=== PATIENT | male | born 1955 | race Caucasian/White ===

== ENCOUNTER 2018-06-04 13:45 | Observation (INO) | payer OTHER ==
[2018-06-04] MEDS ORDERED: MECLIZINE HCL 25 MG TAB PO ONE (14:09)
[2018-06-04 14:13] LABS: PLATELET COUNT 224 10^3/uL (150-400)
--- NOTE | 2018-06-04 14:13 | EDPHY ---
H & P Stated Complaint: double vision,nystagmus Time Seen by Provider: 06/04/18 13:50 HPI/ROS: CHIEF COMPLAINT: Double vision HISTORY OF PRESENT ILLNESS: 62-year-old male presents with double vision. He awoke at 0700 this morning and noted that his "eyes were jumping around" and he had double vision. The double vision consists of one image above the other and occurs only with both eyes open. Associated with dizziness and nausea. Difficulty walking because dizziness. The symptoms are positional and usually resolve when he is supine. No room spinning sensation however. No headache or neck pain. Fell down several stairs 4 weeks ago, unknown mechanism, does not know if he hit his head. No other head or neck trauma. No prior similar symptoms. No extremity weakness or numbness. REVIEW OF SYSTEMS: complete 10 point ROS reviewed and is negative except for the noted elements in the HPI - Personal History Current Tetanus/Diphtheria Vaccine: Yes Current Tetanus Diphtheria and Acellular Pertussis (TDAP): Yes - Medical/Surgical History Hx Asthma: No Hx Chronic Respiratory Disease: No Hx Diabetes: No Hx Cardiac Disease: No Hx Renal Disease: No Hx Cirrhosis: No Hx Alcoholism: No Hx HIV/AIDS: No Hx Splenectomy or Spleen Trauma: No Other PMH: denails - Social History Smoking Status: Never smoked - Physical Exam Exam: General Appearance: Alert, pleasant Eyes: Pupils equal and round, 3 mm, reactive to light, EOMI, no conjunctival pallor or injection, horizontal and rotatory nystagmus present ENT, Mouth: Mucous membranes moist Neck: Normal inspection Respiratory: Lungs are clear to auscultation Cardiovascular: Regular rate and rhythm Gastrointestinal: Abdomen is soft and nontender Neurological: Alert, oriented x3, cranial nerves II through XII intact, motor 5 /5, sensory intact to light touch, gait not assessed Skin: Warm and dry Extremities: Normal inspection Psychiatric: Mood and affect normal Constitutional: Initial Vital Signs Temperature (C) 36.6 C 06/04/18 13:45 Heart Rate 86 06/04/18 13:45 Respiratory Rate 16 06/04/18 13:45 Blood Pressure 146/113 H 06/04/18 13:45 O2 Sat (%) 96 06/04/18 13:45 O2 Delivery Mode Room Air Allergies/Adverse Reactions: No Known Allergies Allergy (Unverified 06/04/18 13:59) Home Medications: Medication Instructions Recorded NK [No Known Home Meds] 06/04/18 Medical Decision Making - Diagnostics EKG Interpretation: EKG interpreted by me reveals NSR, rate 83, inferior Q waves. Interpretation: abnormal EKG Imaging Results: Head CT 06/04/18 14:09 Impression: 1. There is no acute intracranial abnormality identified on this unenhanced CT evaluation. 2. Chronic mucosal thickening involving the maxillary sinuses (left greater than right), and the anterior superior ethmoids. There is no evidence of an acute sinusitis. If there is further clinical concern regarding the patient's symptoms, MR imaging is suggested, if not otherwise contraindicated. Findings were discussed with AMANAD BARBER MD at 15:17, on 06/04/2018. Imaging: Discussed imaging studies w/ outbound call center representative Radiologist ED Course/Re-evaluation: This patient presents with nystagmus and diplopia. Neurologic exam is normal except for nystagmus. No CN palsy present. Primary concern for BPPV vs CVA/ TIA. MRI discussed with the patient, however he is very claustrophobic and declines MRI, even with sedation. CT scan of the brain ordered. Pt understands CT is suboptimal for his c/o. 1500: feels better, nystagmus mild, neuro exam unchanged. 1530: feels much better, nystagmus has resolved, continues to have diplopia. PETRA, EOMI. Remainder of neuro exam normal. CT results d/w pt. ASA given. Maalox given for indigestion. 1545: consulted Dr. Pacheco, concern for CVA, will see pt in hospital. Hospitalist service consulted for admission. Differential Diagnosis: Differential diagnosis includes TIA, stroke, intracranial hemorrhage, tumor, electrolyte abnormality and acute labyrinthitis. - Data Points Laboratory Results: Laboratory Results 06/04/18 14:06 06/04/18 14:06 Medications Given: Melatonin (Melatonin) 9 mg PO HS DEEPTI Stop: 12/01/18 20:59 Last Admin: 06/04/18 23:02 Dose: 9 mg Discontinued Medications Al Hydroxide/Mg Hydroxide (Maalox Susp) 30 ml PO ONCE ONE Stop: 06/04/18 15:39 Last Admin: 06/04/18 15:43 Dose: 30 ml Aspirin (Aspirin) 325 mg PO EDNOW ONE Stop: 06/04/18 15:49 Last Admin: 06/04/18 15:59 Dose: 325 mg Aspirin Buffered (Aspirin Ec) 81 mg PO DAILY DEEPTI Stop: 12/02/18 08:59 Last Admin: 06/05/18 08:02 Dose: 81 mg Meclizine HCl (Meclizine Hcl) 25 mg PO EDNOW ONE Stop: 06/04/18 14:10 Last Admin: 06/04/18 14:20 Dose: 25 mg Departure - Departure Disposition: [facility] Acute Clinical Impression: Heteronymous diplopia Condition: Fair
[2018-06-04] MEDS ORDERED: MAG HYDROX/AL HYDROX/SIMETH 30 ML UDCUP PO ONE (15:38)
[2018-06-04] MEDS ORDERED: ASPIRIN 325 MG TAB PO ONE (15:48)
--- NOTE | 2018-06-04 18:10 | PDGENHP ---
History and Physical - Chief Complaint Double Vision - History of Present Illness Donato Vargas is a 62 yo M with no significant PMHx who presents to [facility] for double vision. He reports that he woke around 7 AM and noted double vision. He describes it has one image being above the other when both of his eyes are open. The double vision resolved when one eye is closed. He denies any headache , eye pain, hearing changes, weakness, new onset numbness/tingling (has chronic b/l feet numbness), chest pain, palpitations, edema, abdominal pain, dysuria. He reports feeling dizzy and nauseous when both of his eyes are open. He reports that he did fall down the stairs about a month ago. He awoke on the bottom of the stairs and did not know what happened. He denies any headache or significant symptoms after that fall. History Information - Allergies/Home Medication List Allergies/Adverse Reactions: No Known Allergies Allergy (Unverified 06/04/18 13:59) Home Medications: NK [No Known Home Meds] 06/04/18 [Last Taken Unknown] I have personally reviewed and updated: family history, medical history, social history, surgical history - Past Medical History no pertinent PMH - Surgical History Reports: no pertinent surgical hx - Family History Positive for: non-pertinent - Social History Smoking Status: Never smoked Alcohol Use: Occasionally Review of Systems Review of Systems: ROS: 10pt was reviewed & negative except for what was stated in HPI & below Physical Exam Physical Exam: Temp Pulse Resp BP Pulse Ox 36.6 C 84 18 149/110 H 94 06/04/18 17:34 06/04/18 17:34 06/04/18 17:34 06/04/18 17:34 06/04/18 17:34 Constitutional: no apparent distress Eyes: PERRL, anicteric sclera, EOMI Ears, Nose, Mouth, Throat: moist mucous membranes Cardiovascular: regular rate and rhythym Respiratory: no respiratory distress Gastrointestinal: soft, non-tender abdomen Skin: warm Musculoskeletal: full muscle strength, No no joint effusions, No muscular tenderness, No generalized weakness Neurologic: AAOx3, sensation intact bilaterally, CN II-XII Intact, No weakness, No numbness, No facial droop Psychiatric: interacting appropriately Lab Data & Imaging Review 06/04/18 14:06 06/04/18 14:06 WBC 7.29 10^3/uL (3.80-9.50) 06/04/18 14:06 RBC 5.50 10^6/uL (4.40-6.38) 06/04/18 14:06 Hgb 17.6 g/dL (13.7-17.5) H 06/04/18 14:06 Hct 50.0 % (40.0-51.0) 06/04/18 14:06 MCV 90.9 fL (81.5-99.8) 06/04/18 14:06 MCH 32.0 pg (27.9-34.1) 06/04/18 14:06 MCHC 35.2 g/dL (32.4-36.7) 06/04/18 14:06 RDW 12.1 % (11.5-15.2) 06/04/18 14:06 Plt Count 224 10^3/uL (150-400) 06/04/18 14:06 MPV 9.4 fL (8.7-11.7) 06/04/18 14:06 Neut % (Auto) 65.5 % (39.3-74.2) 06/04/18 14:06 Lymph % (Auto) 19.2 % (15.0-45.0) 06/04/18 14:06 [place] % (Auto) 10.6 % (4.5-13.0) 06/04/18 14:06 Eos % (Auto) 3.0 % (0.6-7.6) 06/04/18 14:06 Baso % (Auto) 1.0 % (0.3-1.7) 06/04/18 14:06 Nucleat RBC Rel Count 0.0 % (0.0-0.2) 06/04/18 14:06 Absolute Neuts (auto) 4.78 10^3/uL (1.70-6.50) 06/04/18 14:06 Absolute Lymphs (auto) 1.40 10^3/uL (1.00-3.00) 06/04/18 14:06 Absolute Monos (auto) 0.77 10^3/uL (0.30-0.80) 06/04/18 14:06 Absolute Eos (auto) 0.22 10^3/uL (0.03-0.40) 06/04/18 14:06 Absolute Basos (auto) 0.07 10^3/uL (0.02-0.10) 06/04/18 14:06 Absolute Nucleated RBC 0.00 10^3/uL (0-0.01) 06/04/18 14:06 Immature Gran % 0.7 % (0.0-1.1) 06/04/18 14:06 Immature Gran # 0.05 10^3/uL (0.00-0.10) 06/04/18 14:06 Sodium 136 mEq/L (135-145) 06/04/18 14:06 Potassium 4.2 mEq/L (3.5-5.2) 06/04/18 14:06 Chloride 105 mEq/L (97-110) 06/04/18 14:06 Carbon Dioxide 22 mEq/l (22-31) 06/04/18 14:06 Anion Gap 9 mEq/L (6-14) 06/04/18 14:06 BUN 14 mg/dL (7-23) 06/04/18 14:06 Creatinine 1.0 mg/dL (0.7-1.3) 06/04/18 14:06 Estimated GFR > 60 06/04/18 14:06 Glucose 96 mg/dL (70-100) 06/04/18 14:06 Calcium 9.8 mg/dL (8.5-10.4) 06/04/18 14:06 Assessment & Plan Assessment: Binocular Vertical Diplopia - Acute onset this morning, non-painful - PERRLA and EOMI on examination this afternoon, CN intact 2-12, no focal neurological deficits noted - CT Head on admission with no acute intracranial abnormalities - MRI Brain currently being refused by patient due to claustrophobia - Neurology consulted by ED, will f/u recommendations - S/p 325 mg ASA in ED, will continue ASA 81 mg in the event this is related to ischemia - TSH, Hgb A1c, Thiamine levels to be checked FEN: IV PRN, Regular diet DVT PPx: Subq Lovenox Code: FULL Admit to Observation
[2018-06-04] MEDS ORDERED: IOPAMIDOL (ISOVUE-370) 150 ML BTL IV ONE (20:47)
[2018-06-04] MEDS ORDERED: MELATONIN 3 MG TAB PO SCH (21:00)
--- NOTE | 2018-06-04 21:41 | CPEKG ---
Test Reason : OPEN Blood Pressure : / mmHG Vent. Rate : 084 BPM Atrial Rate : 083 BPM P-R Int : 187 ms QRS Dur : 080 ms QT Int : 369 ms P-R-T Axes : 010 -42 004 degrees QTc Int : 437 ms Sinus rhythm Inferior infarct, old Confirmed by Huma Guthrie ([id number]) on 06/04/2018 9:40:53 PM Referred By: Huma Guthrie Confirmed By:Huma Guthrie
[2018-06-05] MEDS ORDERED: ASPIRIN EC 81 MG TAB PO SCH (09:00)
--- NOTE | 2018-06-05 09:31 | NEUROPROG ---
Assessment: [id number] - Neurology Consult: - CC: Dr. Thomas consulted neurology for diplopia. Results of consult placed in EMR for his review. - HPI: 06/05/18: Pt had no issues when going to bed on 06/03/18 but when he awoke at 7 am the next morning he noted diplopia (resolves when closing one eye). He denied RAMOS, eye pain, weakness, numbness (has chronic tingling in feet), or other neurologic issues. Head CT showed no intracranial abnl. Pt declined brain MRI due to claustrophobia. 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 Neurologic exam on 06/05/18 was normal and pt reported diplopia briefly recurred in the am of 06/05/18 but has then resolved and he feels back to normal. I suspect he likely had a peripheral vertigo syndrome (bppv or vestibular neuronitis) but cannot fully exclude a brainstem stroke w/o a brain MRI. Pt will call me after getting out of hospital and I will arrange WILL open MRI. If MRI does end up showing stroke I will begin an aspirin 81 mg qd. In regards to the AVM it seems asymptomatic given no evidence of acute bleed. I will ask neurosurgery to consult on this finding. - PMHx: none - SHx: no tobacco FHx: NC - ROS: Pt denied acute fever, total vision loss, active severe chest pain, respiratory failure, total body severe rash, total bowel/bladder incontinence, psychosis, active seizures, or active bleeding - O: VS reviewed General: Alert Eyes: Fundoscopic exam not able to visualize optic disks CV: Heart RRR, no murmur, no carotid bruit Lungs: Clear to auscultation bilaterally, no rhonchi or rales Neuro: - Mental: . Oriented x person/place/date . concentration appears normal . speech fluency/comprehension normal . memory appears normal . fund of knowledge appear intact - Cranial Nerves: . II: PERRL, VFFTC . III/IV/: EOMI, no nystagmus, normal smooth pursuits, no Ptosis . V: facial sensation intact to LT . VII: face symmetric to eye closure and smile . VIII: hearing intact to conversation . IX/X: uvula raises symmetrically . XI: SCM 5/5 B/L strength . XII: tongue protrudes midline w/nl strength - Motor: . Tone: normal tone in all 4 extremity . 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 No flow significant stenosis in either carotid artery or vertebral artery or evidence for dissection. - Assessment: 1. Diplopia likely from peripheral vertigo syndrome: DDx is brainstem stroke versus peripheral vertigo syndrome. Pt declined brain MRI so not able to differentiate so will perform stroke evaluation. - 2. AVM noted on head CTA 06/04/18: No acute bleed on head CT so likely an incidental finding - Plan: - Pt declined brain MRI due to claustrophobia, will plan on WILL open MRI in outpatient setting after patient discharged, he was given my office number and told to call me after he leaves the hospital - TTE, Telemetry for 24 hours - Blood pressure goal < 140/90 - LDL goal < 70 (54) - H1AC goal < 7.0 (5.6) - Stop aspirin as diagnosis seems most likely peripheral vertigo syndrome and underlying AVM is a bleeding risk - PT for any rehab needs - Neurosurgery consult to evaluate AVM (I spoke with Dr. Serna on 06/05/18) - F/U in neurology clinic by phone after hospital discharge to arrange WILL open MRI Objective: Vital Signs Temp Pulse Resp BP Pulse Ox 36.6 C 75 12 140/102 H 94 06/05/18 08:00 06/05/18 08:00 06/05/18 08:00 06/05/18 08:00 06/05/18 08:00 06/04/18 06/05/18 06/06/18 05:59 05:59 05:59 Intake Total 500 Output Total 0 Balance 500 Allergies/Adverse Reactions: No Known Allergies Allergy (Unverified 06/04/18 13:59)
--- NOTE | 2018-06-05 10:40 | ECHO ---
[email or web address] [address] Main: [phone] Echocardiography Examination Transthoracic Name: MAYCO BARRETT MR#: Study Date: 06/05/2018 Study Time: 08:25 AM Date of : 1955 Age: 62 year(s) Height: 172.7 cm (68 in.) Weight: 95.26 kg (210 lb.) BSA: 2.09 m2 Gender: Male Examination: Echo Contrast: Image Quality: Adequate Rhythm: Heart Rate: BP: 140 mmHg/102 mmHg Indication: Ischemic Stroke w/o TPA Procedure Staff Referring Physician: Salesperson Furniture: Cynthia Lundy RDCS Reading Physician: Timmy Clement MD Requesting Provider: Indication: Ischemic Stroke w/o TPA Measurements Chambers AV/MV Label Value Normal Value Label Value Normal Value LVEF, BP 58 % (55% - 70%) AV PGmax 5 mmHg LVOT PGmean 2 mmHg AV PGmean 4 mmHg LVOT Vmean 0.65 m/s AV Vmax 1.11 m/s LA Volume, BP 45 ml (18ml - 58ml) MV A Vmax 0.81 m/s LAESV index, BP 21.5 ml/m2 MV DT 236 ms Additional Vessels MV E' lateral 0.11 m/s Label Value Normal Value MV E' mean 0.08 m/s AoAsc 4.1 cm MV E' septal 0.06 m/s AoRoot, 2D 4.4 cm (1.4cm - 2.6cm) MV E Vmax 0.66 m/s IVC 1.8 cm (1.2cm - 2.3cm) MV E/A 0.81 MV E/E' lateral 6.2 MV E/E' mean 7.76 MV E/E' septal 10.8 (0.45 - 1.25) MV PHT 0.06 s MV PHT 64 ms MVA PHT 3.4 cm2 TV/PV Label Value Normal Value PV PGmax 2 mmHg PV Vmax, Caliper 0.73 m/s (0.6m/s - 0.9m/s) Patient: MAYCO BARRETT MRN: Study Date: 06/05/2018 Page 1 of 2 08:25 AM Conclusions Technically difficult, very limited windows. Left Ventricle: EF range is estimated at 55 % - 60 %. Mitral Valve: Mild mitral regurgitation. Aorta: The aortic root size in 2D measures 4.4 cm. The aortic root exhibits dilatation. There is dilatation of the ascending aorta. Aorta Measurements AoRoot, 2D is 4.4 cm. Findings Technically difficult, very limited windows. Left Ventricle: Left ventricle is normal in size. Normal global systolic left ventricular function. The ejection fraction, measured by Simpsons method, is 58 %. EF range is estimated at 55 % - 60 %. There are no regional wall motion abnormalities. Left ventricular diastolic function parameters are normal. Right Ventricle: Upper normal size right ventricle. Left Atrium: The left atrium is normal in size. Mitral Valve: Mitral valve appears structurally normal. Mild mitral regurgitation. No mitral valve stenosis. Aortic Valve: Aortic leaflets are structurally normal. No significant aortic valve regurgitation. There is no aortic stenosis. Tricuspid Valve: Trivial tricuspid regurgitation. Aorta: The aortic root size in 2D measures 4.4 cm. The aortic root exhibits dilatation. The ascending aorta measures 4.1 cm. There is dilatation of the ascending aorta. Aorta Measurements AoRoot, 2D is 4.4 cm. IVC: The inferior vena cava is normal in size. Exam Details Procedure Ordered: Echo Procedure Status: Routine study Image Quality: Adequate Facility Location: Cardiac Echo 1 (No Signature Object) Patient: MAYCO BARRETT MRN: Study Date: 06/05/2018 Page 2 of 2 08:25 AM [id number]
[2018-06-05 12:08] VITALS: BP 116/94
--- NOTE | 2018-06-05 16:37 | PDDCSUM ---
Discharge Summary Discharge Summary: Date of Admission: 06/04/2018 Date of Discharge: 06/05/2018 Consults: Neurology Procedures: CT Head Followup: Neurology Hospital Course Problem List: Binocular Vertical Diplopia - Acute onset, non-painful, resolved this morning - PERRLA and EOMI on examination, CN intact 2-12, no focal neurological deficits noted - CT Head on admission with no acute intracranial abnormalities - MRI Brain currently being refused by patient due to claustrophobia - Neurology consulted, will plan for WILL open MRI in outpatient setting and f/ u in Neurology clinica - S/p 325 mg ASA in ED, will not continue as outpatient per neurology as diagnosis seems most c/w peripheral vertigo syndrome and with underlying AVM there is a bleeding risk - TSH, Hgb A1c, Thiamine levels WNL AVM - Noted on head CTA - No acute bleed seen on head CT so likely an incidental finding - To f/u with neurology as outpatient Time spent on discharge was >35 minutes with >50% of time spent on patient education and counseling.
== END 2018-06-05 12:35 | disposition home or self-care (01) ==
LOC: EDBD → EDUNIT# → F3E 17:22
PROVIDERS: ADMIT Internal Medicine; ATTEND Internal Medicine
DX: H53.2 Diplopia (principal); H81.399 Other peripheral vertigo, unspecified ear; Q28.2 Arteriovenous malformation of cerebral vessels
CPT/HCPCS: 70450; 70496; 70498; 93005; 93306; 99285; G0378; Q9967